=== PATIENT | male | born 1995 | race Hispanic/Latino ===

== ENCOUNTER 2024-10-04 13:10 | Emergency (ER) | payer BC ==
[2024-10-04] MEDS ORDERED: GENTAmicin SULFate 80 MG/2 ML VIAL IM SCH (15:00)
--- NOTE | 2024-10-04 15:23 | HMCIMG ---
HAND 3+VWS RT HISTORY: Injury COMPARISON: None TECHNIQUE: 4 images of right hand were obtained. FINDINGS: There is no acute displaced fracture or dislocation. IMPRESSION: 1. Findings as described above.
[2024-10-04] MEDS ORDERED: CLIN-141 PO (16:53)
--- NOTE | 2024-10-04 16:53 | ERN ---
ED Note History of Present Illness Stated Complaint: HAND LACERATION Chief Complaint: Laceration/Avulsion Time Seen by MD: 15:07 Time Seen by Midlevel: 15:07 Dictation: The patient is a 29-year-old male with no past medical history who presents to the emergency department with complaints of wound to right 4th and 5th digit after accidentally cutting them with some call ribs. Patient denies any other injuries. Not up-to-date with Tdap. Allergies: Coded Allergies: cefaclor (Unverified Allergy, Unknown, 10/04/24) Home Meds Active Scripts Clindamycin HCl (Clindamycin HCl) 300 Mg Capsule, 1 CAP PO QID for 7 Days, #28 CAP 0 Refills Prov:CHAD SALDIVAR 10/04/24 Past Medical History RN Note Reviewed/Agreed w/PFSH: Yes Review of System Dictation Constitutional: Negative for fever,chills, and weight loss Eyes: Negative for injury, pain,redness, and discharge ENT: Negative for injury,pain or swelling Cardiovascular: Negative for chest pain, palpitations, and edema Respiratory: Negative for shortness of breath, cough, and wheezing, Abdomen/GI: Negative for abdominal pain, nausea, vomiting, diarrhea, and constipation Back: Negative for injury and pain : Negative for injury, bleeding and discharge MS/Extremity: Negative for injury and deformity Skin: Negative for rash, and discoloration positive for laceration Neuro: Negative for headache, weakness, numbness, tingling, and seizure Psych: Negative for suicide ideation, homicidal ideation, and hallucinations Initial Vital Sign VS Vital Signs Date Time Temp Pulse Resp B/P (MAP) Pulse Ox O2 Delivery O2 Flow Rate FiO2 10/04/24 17:14 98.1 81 18 132/78 98 Room Air* 0 21 Physical Exam Dictation Vital Signs reviewed General Appearance: Alert, oriented x 3, no acute distress, well developed, nourished. Head and Face: non-traumatic. Eyes: PERRL, pink conjunctivas, eyelid no trauma, anterior chamber with arcus senilis. Ears: Pinnas intact and no signs of trauma or erythema ear canals clear and no discharge TM no erythema Nose: No discharge, no bleeding. Oropharynx: Mouth normal, tongue pink. pharynx clear,no erythema, tonsils no exudates, no abscesses noted, mucous membrane moist Neck: Supple, non-tender, no thyromegaly, no masses, no JVD, no bruits Breast:Deferred Chest:No tenderness, no crepitus, no paradoxical movement, no retractions Lungs:Clear, well-ventilated, symmetric, no rales, no wheezing, no rhonchi, no stridor, good breath sounds bilaterally Heart: Regular rate, regular rhythm, no murmur, no gallops Vascular: no peripheral edema, Abdomen: Soft, positive bowel sounds, nondistended, no guarding, nontender, no rebound, no masses no hepatomegaly, no splenomegaly, no Cordero's sign, no hernias. Rectal: Deferred Genital: Deferred Neurological: Normal speech, motor function intact, sensory function intact Musculoskeletal: Neck nontender, full range of motion, back nontender, full range of motion, Extremities: nontender, full range of motion Skin: Color pink, dry, no turgor, no rash,no abrasions, no contusions.1.5 cm laceration to distal 4th and 5th finger, no foreign body identify, minimal bleeding Lymphatic: Deferred Results (Laboratory/Radiology) Laboratory/Radiology REASON: injury ORDERING PHYSICIAN: WENDY KHAN MD PROCEDURE: HAND 3V RT - HAND 3+VWS RT HAND 3+VWS RT HISTORY: Injury COMPARISON: None TECHNIQUE: 4 images of right hand were obtained. FINDINGS: There is no acute displaced fracture or dislocation. IMPRESSION: 1. Findings as described above. Labs Reviewed?: Yes ED Course ED Course Orders Procedure Category Date Status Time Hand 3+Vws Rt RAD 10/04/24 Resulted 14:37 Diph,Pertuss(Acell),Tet PHA 10/04/24 Complete Vac/Pf (Tdap) 15:00 Hydrocodone/Apap PHA 10/04/24 Complete 10/325 Tab ([place] 10) 15:00 Gentamicin Sulfate 80 PHA 10/04/24 Complete Mg/2 Ml (Garamycin 15:00 Gentamicin 80 Mg/Ns PHA 10/04/24 Complete 100 Ml Pb (Gentamici 15:00 Lidocaine Hcl 1% 20ml PHA 10/04/24 Complete Vial (Lidocaine Hc 16:00 Lidocaine Hcl 1% 20ml PHA 25 Complete Vial (Lidocaine Hc 15:41 Current Medications Medications (Trade) Dose Ordered Sig/Dilcia Route PRN Reason Start Time Stop Time Status Last Admin Dose Admin Acetaminophen/ Hydrocodone Bitart (NORco 10) 1 tab ONCE ONCE PO 10/04/24 15:00 10/04/24 15:01 DC 10/04/24 17:04 Diphtheria/ Tetanus/Acell Pertussis (Tdap) 0.5 ml ONCE ONCE IM 10/04/24 15:00 10/04/24 15:01 DC 10/04/24 17:05 Gentamicin Sulfate/Sodium Chloride 100 ml @ 200 mls/hr ONCE ONCE IV 10/04/24 15:00 10/04/24 15:29 DC 10/04/24 17:03 Gentamicin Sulfate (GARAmycin 80 MG/ 2 ML VIAL) 80 mg ONCE IM 10/04/24 15:00 10/04/24 14:41 DC Lidocaine HCl (Lidocaine HCl 1% 20ml Vial) 10 ml ONCE ONCE INJ 10/04/24 16:00 10/04/24 16:01 DC 10/04/24 16:58 Lidocaine HCl (Lidocaine HCl 1% 20ml Vial) 20 ml STK-MED ONCE .ROUTE 10/04/24 15:41 10/04/24 15:41 DC Vital Signs Date Time Temp Pulse Resp B/P (MAP) Pulse Ox O2 Delivery O2 Flow Rate FiO2 10/04/24 18:12 98.1 81 18 132/78 Room Air* 0 21 10/04/24 17:14 98.1 81 18 132/78 98 Room Air* 0 21 Medical Decision Making MDM The patient is a 29-year-old male with no past medical history who presents to the emergency department with complaints of wound to right 4th and 5th digit after accidentally cutting them with some call ribs. Patient denies any other injuries. Not up-to-date with Tdap. X-ray showed no acute fractures or dislocation. Patient's wounds extensively cleaned and repaired. Patient instructed to follow up with PCP. Differential diagnosis: Laceration, avulsion, open fracture Need for hospitalization: Patient does not meet criteria for hospitalization. There are no social concerns with this patient. Procedure Procedure Dictation: Time and Date Performed:10/04/2024 0420 INDICATION: Laceration Location: Right 4th and 5th digit Informed consent was obtained. Pre-procedure time out was obtained. Anesthetic: 1% lidocaine Manual prep of skin and wound was done with saline and Betadine, wound cleanser Foreign Body: NO foreign bodies were identified. Length Repaired:1.5cm; 1.5cm Suture used: Ethanol # of simple sutures: Five sutures on 4th digit, seven sutures on 5th digit Aseptic technique was used during the entire procedure. Wound Location: upper extremity Wound's Depth, Shape: irregular, flap, contused tissue Wound Explored: clean Betadine Prep?: Yes Anesthesia: 1% Lidocaine Volume Anesthetic (ccs): 10 Suture Size/Type: 3:0, nylon Number of Sutures: 12 Sterile Dressing Applied?: Yes DX & DISP Disposition: Discharge Departure Impression: Primary Impression: Laceration of finger of right hand Condition: Stable Scripts Clindamycin HCl (Clindamycin HCl) 300 Mg Capsule 1 CAP PO QID for 7 Days, #28 CAP 0 Refills Prov: CHAD SALDIVAR [employer] 10/04/24 Additional Instructions: Please follow up with your primary doctor in 1-2 days. Keep your stitches clean and dry. Do not put your stitches under water, such as in a bath, pool, or galo. This can slow healing and raise your chance of getting an infection. Avoid activities or sports that could hurt the area of your stitches for 1-2 weeks. You should call your doctor if you develop any fever, redness or swelling around the cut, or pus draining from the cut. Your sutures will need to be removed in 10-14 days. FOLLOW-UP WITH PRIMARY CARE PROVIDER IN 1 TO 2 DAYS. TAKE MEDICATIONS DIRECTED HERE IN THE EMERGENCY ROOM. OKAY TO CONTINUE HOME MEDICATIONS UNLESS OTHERWISE DISCUSSED DURING YOUR VISIT IN THE EMERGENCY ROOM TODAY. RETURN TO YOUR NEAREST EMERGENCY ROOM IF SYMPTOMS WORSEN OR IF THERE IS NO IMPROVEMENT. CALL 911 IF YOU NEED IMMEDIATE ASSISTANCE. TAKE TYLENOL OR MOTRIN [id number] NEEDED AND IF NO CONTRAINDICATIONS ARE PRESENT. INCREASE ORAL HYDRATION. A WOUND CULTURE OR URINE CULTURE WAS ORDERED HERE IN THE EMERGENCY ROOM DEPARTMENT PLEASE FOLLOW-UP WITH PRIMARY CARE PROVIDER AND ADVISE THEM TO GET REPEAT PORTS FROM OUR FACILITY. IF YOU HAD ANY ADRIANA WRAP/SPLINTS THAT WERE APPLIED HERE, PLEASE DO NOT REMOVE THEM UNTIL YOU SEE YOUR PRIMARY CARE OR SPECIALTY. Referrals: SELF,REFERRAL (PCP) Time of Disposition: 16:48 I performed the substantive portion of the visit. I have reviewed and personally made and approve the management plan that is documented in the notes by myself or the MALI. I acknowledge full responsibility for the patient's management plan. I have examined patient, & reviewed all documents, & agreed W/ the Diagnosis, and Plan CHAD SALDIVAR Oct 04, 2024 16:53 WENDY KHAN MD Oct 06, 2024 17:05
[2024-10-04] MEDS: LIDOCAINE HCL 1% 20 ML VIAL INJ ONE (16:58)
[2024-10-04] MEDS: LIDOCAINE HCL 1% 20 ML VIAL ONE (16:58)
[2024-10-04] MEDS: GENTAmicin 80 MG/NS 100 ML PB 100 ML IV ONE (17:03)
[2024-10-04] MEDS: HYDROcodone/acetaMINOPHEN 10/325 MG TAB PO ONE (17:04)
[2024-10-04] MEDS: DIPH,PERTUSS(ACELL),TET VAC/PF 0.5 ML VIAL IM ONE (17:05)
[2024-10-04 17:14] VITALS: O2SAT 98
[2024-10-04 18:12] VITALS: BP 132/78; PULSE 81; RESP 18; TEMP 98.1
== END 2024-10-04 18:12 | disposition home or self-care (01) ==
LOC: EDH 13:10
DX: S61.214A Laceration without foreign body of right ring finger without damage to nail, initial encounter (principal); S61.216A Laceration without foreign body of right little finger without damage to nail, initial encounter; Z88.1 Allergy status to other antibiotic agents; W45.8XXA Other foreign body or object entering through skin, initial encounter; Y93.89 Activity, other specified; Y92.89 Other specified places as the place of occurrence of the external cause; Y99.8 Other external cause status
CPT/HCPCS: 99284; 96365; 90715; 73130; 90471; J1580